=== PATIENT | female | born 1955 | race Caucasian/White ===

== ENCOUNTER 2024-08-02 07:45 | Day surgery (SDC) | payer MEDICARE, SELFPAY ==
[2024-06-16 07:34] VITALS: BMI 27.8
[2024-07-13 11:05] VITALS: BMI 27.5
[2024-08-02 08:17] VITALS: BP 113/76; PULSE 66; RESP 16; TEMP 36.7; O2SAT 98
[2024-08-02] MEDS: LACTATED RINGERS 1,000 ML 150 ML IV CONT (08:36)
[2024-08-02 08:39] LABS: Glucose Point of Care 98 mg/dl (65-105)
--- NOTE | 2024-08-02 09:06 | PM.HPGS ---
History of Present Illness History of Present Illness Consent: Risks, benefits, and alternatives have been discussed and questions answered. Patient agrees to proceed with procedure. Chief complaint: Z12.11 Screening neoplasm of colon Narrative: Vanessa Cuello is a 69 year old female presents for screening colonoscopy. Patient's current weight appetite is are normal. She denies abdominal pain. Patient has had no bleeding. Family history noncontributory. Patient reports she had a previous colonoscopy 10 years ago that was unremarkable. Review of Systems Review of Systems: All systems reviewed & are unremarkable except as noted in HPI and below PMFSH Social History Social History Smoking status: Never smoker Alcohol intake: never Drinks per week: 0 Alcohol use details: 1X A MONTH Substance use: never Substance use type: does not use Living arrangements: with family Spiritual care concerns: No Meds Home Medications and Allergies Home Medications Medication Instructions Recorded Confirmed Type empagliflozin 25 mg tablet 25 mg PO HS 07/13/24 08/02/24 History (Jardiance) ferrous sulfate 325 mg (65 mg 325 mg PO BID 07/13/24 08/02/24 History iron) tablet (FeroSul) glimepiride 4 mg tablet 4 mg PO HS 07/13/24 08/02/24 History paroxetine HCl 20 mg tablet 20 mg PO HS 07/13/24 08/02/24 History rosuvastatin 20 mg tablet 20 mg PO HS 07/13/24 08/02/24 History semaglutide 1 mg/dose (4 mg/3 mL) 1 mg subcut WEEKLY 07/13/24 08/02/24 History subcutaneous pen injector (Ozempic) Allergies Allergy/AdvReac Type Severity Reaction Status Date / Time Penicillins Allergy Unknown Unknown Verified 08/02/24 08:14 Vital Signs Vital Signs - 24 hr 08/02/24 08:17 Temperature 98.1 F Pulse Rate 66 Respiratory Rate 16 Blood Pressure 113/76 Pulse Oximetry 98 Oxygen Delivery Room Air Exam Narrative: Physical exam reveals patient to be alert is stable. HEENT exam unremarkable. Patient is anicteric. Lungs are clear to auscultation and to percussion. Heart is without murmur or extra sounds. Abdomen bowel sounds are present soft nontender with no organomegaly. Digital external rectal exam is normal. Assessment and Plan Assessment and plan (1) Screen for colon cancer: Code(s): Z12.11 - Encounter for screening for malignant neoplasm of colon Status: Acute Assessment and Plan: Patient presents today for screening colonoscopy. Further recommendations may be given after endoscopy.
--- NOTE | 2024-08-02 09:14 | P.PNAN_ITS ---
Anes - Initial Pre Proc Eval Procedure: Operation Date: 08/02/24 10:00 Proposed Procedures p Screening Colonoscopy - Deven Patten MD Date/Time: 08/02/24 09:14 Surgeon: Deven Patten MD Pre Op Diagnosis: Z12.11 Screening neoplasm of colon Patient Data Age: 69 Gender: F Height: 1.65 m Weight: 74.1 kg Last Vital Signs Temp 36.7 C 08/02/24 08:17 Pulse 66 08/02/24 08:17 Resp 16 08/02/24 08:17 BP 113/76 08/02/24 08:17 Pulse Ox 98 08/02/24 08:17 O2 Del Method Room Air 08/02/24 08:17 Allergies Allergy/AdvReac Type Severity Reaction Status Date / Time Penicillins Allergy Unknown Unknown Verified 08/02/24 08:14 Home Medications Medication Instructions Recorded Confirmed Type empagliflozin 25 mg tablet 25 mg PO HS 07/13/24 08/02/24 History (Jardiance) ferrous sulfate 325 mg (65 mg 325 mg PO BID 07/13/24 08/02/24 History iron) tablet (FeroSul) glimepiride 4 mg tablet 4 mg PO HS 07/13/24 08/02/24 History paroxetine HCl 20 mg tablet 20 mg PO HS 07/13/24 08/02/24 History rosuvastatin 20 mg tablet 20 mg PO HS 07/13/24 08/02/24 History semaglutide 1 mg/dose (4 mg/3 mL) 1 mg subcut WEEKLY 07/13/24 08/02/24 History subcutaneous pen injector (Ozempic) Laboratory Tests 08/02/24 08:32 POC Capillary Glucose 98 mg/dl (65-105) Patient hx anesthesia problems: none Family hx anesthesia problems: none Results Review: All pre-operative results and documents have been reviewed as part of the pre- operative evaluation. [facility], [facility] Past Medical History Medical History (Updated 08/02/24 @ 09:15 by Chalino Hernadez MD) Anxiety Diabetes Overweight Social History Social History Smoking status: Never smoker Alcohol intake: never Drinks per week: 0 Alcohol use details: 1X A MONTH Substance use: never Substance use type: does not use Living arrangements: with family Spiritual care concerns: No Anes - Eval Final PreProcedure Day of Procedure 08/02/24 09:14 Patient weight: overweight Heart: regular rate and rhythm Lungs: clear to auscultation Airway: Mallampati scale class II Neurological: alert and oriented Last oral intake: >/= 8 hours ASA classification: III Emergent: no Anesthetic plan: proceed Anesthesia type and monitoring: general GIVS and standard monitoring Results Review: All pre-operative results and documents have been reviewed as part of the pre- operative evaluation. Informed Consent: The patient's anesthetic plan and its attendant risks and benefits were discussed with the patient/family/POA. Questions were solicited and answers provided to the satisfaction of the patient/family/POA.
[2024-08-02 10:05] VITALS: BP 100/61; PULSE 68; RESP 18; O2SAT 98
[2024-08-02 10:15] VITALS: BP 96/62; PULSE 70; RESP 18; O2SAT 98
[2024-08-02 10:25] VITALS: BP 111/70; PULSE 68; RESP 18; O2SAT 98
--- NOTE | 2024-08-02 10:42 | WPDANESPN ---
Anes - Prog Note Post-Op Date/Time: 08/02/24 10:42 Cardiovascular status: normal Respiratory status: normal Airway patency: baseline Mental status: baseline Post-Op hydration status: normal Vital Signs: Last Vital Signs Temp 36.7 C 08/02/24 08:17 Pulse 68 08/02/24 10:25 Resp 18 08/02/24 10:25 BP 111/70 08/02/24 10:25 Pulse Ox 98 08/02/24 10:25 O2 Del Method Room Air 08/02/24 10:25 Pain Score (VAS): 0/10 I/O: Intake & Output 08/01/24 08/02/24 08/02/24 23:59 07:59 15:59 Intake Total 700 Balance 700 08/02/24 08:32 POC Capillary Glucose 98 Patient Feedback: Patient satisfied with anesthetic care.
== END 2024-08-02 10:40 | disposition home or self-care (01) ==
PROVIDERS: PCP Internal Medicine; Visit Provider Internal Medicine Gastroenterology
PROC: 0DJD8ZZ Inspection of Lower Intestinal Tract, Via Natural or Artificial Opening Endoscopic (ICD-10-PCS; CPT 45378; principal; 2024-08-02 10:00)
DX: Z12.11 Encounter for screening for malignant neoplasm of colon (principal); K57.30 Diverticulosis of large intestine without perforation or abscess without bleeding
CPT/HCPCS: 45378